=== PATIENT | male | born 1960 | race Caucasian/White ===

== ENCOUNTER → 2021-07-16 09:45 | Outpatient (CLI) | payer SELFPAY | PROVIDERS: PCP Internal Medicine; Visit Provider Nurse Practitioner | DX: Z20.822 Contact with and (suspected) exposure to COVID-19 (principal); U07.1 COVID-19 | CPT/HCPCS: C9803; U0003; U0005 ==

== ENCOUNTER 2021-07-17 07:39 | Outpatient (CLI) | payer SELFPAY ==
[2021-07-17 08:27] VITALS: BP 131/76; PULSE 81; RESP 20; TEMP 36.9; O2SAT 95
[2021-07-17 09:15] VITALS: BP 139/72; PULSE 81; RESP 18; TEMP 36.9; O2SAT 95
[2021-07-17 09:30] VITALS: BP 134/72; PULSE 79; RESP 18; TEMP 36.9; O2SAT 96
[2021-07-17 09:45] VITALS: BP 132/70; PULSE 88; RESP 18; TEMP 36.9; O2SAT 95
[2021-07-17 10:00] VITALS: BP 141/70; PULSE 79; RESP 18; TEMP 36.9; O2SAT 95
[2021-07-17 10:29] VITALS: BP 130/68; PULSE 85; RESP 18; TEMP 36.9; O2SAT 96
== END 2021-07-17 10:31 | disposition home or self-care (01) ==
LOC: INF 07:46
PROVIDERS: PCP Internal Medicine; Visit Provider Internal Medicine
DX: U07.1 COVID-19 (principal)
CPT/HCPCS: 96360

== ENCOUNTER → 2022-11-04 09:43 | Outpatient (CLI) | payer OTHER, SELFPAY ==
[2022-11-04 09:57] LABS: Microscopic, Urine URINE MICROSCOPIC (MICROSCOPIC)
[2022-11-04 10:47] LABS: Chloride 105 mmol/L (98-107); Sodium 141 mmol/L (136-145)
[2022-11-04 10:49] LABS: Blood Urea Nitrogen 13 mg/dl (9-20); Estimated Glomerular Filt Rate 86 ml/min (>60); GFR (African American) 104 ML/MIN (>60)
[2022-11-04 10:50] LABS: Alanine Aminotransferase 48 U/L (12-78); Albumin Level 4.4 g/dl (3.5-5.0); Albumin/Globulin Ratio 1.3 (1.1-1.8); Alkaline Phosphatase 85 U/L (38-126); Aspartate Amino Transferase 39 U/L (17-59); Bilirubin,Total 0.8 mg/dl (0.2-1.3); Calcium 9.4 mg/dl (8.4-10.2); Carbon Dioxide 29 mmol/L (22.0-30.0); Globulin 3.3 g/dL (1.3-3.2); Glucose 148 mg/dl (74-100); Total Protein,Serum 7.7 g/dl (6.3-8.2)
[2022-11-04 11:22] LABS: Appearance,Urine CLEAR (Clear); Bilirubin,Urine Negative (Negative); Blood, Urine Negative (Negative); Color,Urine YELLOW (Yellow); Glucose,Urine (UA) 3+ (Negative); Ketones,Urine Negative (Negative); Leukocyte Esterase,Urine Negative (Negative); Nitrate,Urine Negative (Negative); Protein,Urine Negative (Negative); Specific Gravity, Urine <= 1.005 (1.005-1.030); Urobilinogen,Urine 0.2 EU/dl (0.2)
[2022-11-04 11:34] LABS: Bacteria,Urine Trace /lpf
== END ==
PROVIDERS: Visit Provider Chiropractor
DX: E11.9 Type 2 diabetes mellitus without complications (principal); Z79.4 Long term (current) use of insulin
CPT/HCPCS: 36415; 80053; 81001

== ENCOUNTER 2024-02-04 10:53 | Emergency (ER) | payer OTHER, SELFPAY ==
--- NOTE | 2024-02-04 11:16 | ED_ITS ---
Discharge Plan Disposition Patient Disposition: Home, Self-Care Condition: Good Prescriptions Prescriptions: New levofloxacin 500 mg tablet 500 mg PO DAILY Qty: 10 0RF No Action cyclobenzaprine 10 MG tablet 10 mg PO Q8HP PRN (Reason: Muscle Spasm) ranitidine HCl [Zantac 75] 75 MG tablet 75 mg PO DAILY Referrals Follow up/Referrals: Provider,Referral, MD [Primary Care Provider] - See instructions Activity Restrictions/Add. Instructions Additional Instructions/Restrictions: [facility] not [facility] Clinical Impressions Clinical Impression: Acute prostatitis Instructions Patient Instructions: DI for Acute Prostatitis Discharge ED Provider: Catherine Pack [facility] General Stated complaint: Pain and pressure while urinating Time Seen by Provider: 02/04/24 12:16 History of Present Illness Provider Complaint: Dysuria and frequency, pressure since yesterday morning Onset (ago): day(s) Location: pelvis Relieving factors: none Exacerbating factors: none Associated symptoms: denies other symptoms Treatments prior to arrival: none Related Data Home Medications Medication Instructions Recorded Confirmed aspirin 81 mg tablet 81 mg PO ONCE 01/25/18 atorvastatin 20 mg tablet 20 mg PO ONCE 01/25/18 cyclobenzaprine 10 mg tablet 10 mg PO Q8HP PRN Muscle Spasm 01/25/18 01/25/18 insulin glulisine U-100 100 10 unit SQ QAM 01/25/18 unit/mL subcutaneous solution (Apidra U-100 Insulin) lisinopril 20 mg tablet 20 mg PO ONCE 01/25/18 metformin 1,000 mg tablet 1,000 mg PO BID 01/25/18 ranitidine HCl 150 mg capsule 150 mg PO QHS 01/25/18 ranitidine HCl 75 mg tablet 75 mg PO DAILY stomach 01/25/18 01/25/18 (Zantac) Previous Rx's Medication Instructions Recorded levofloxacin 500 mg tablet 500 mg PO DAILY #10 tabs 02/04/24 Allergies Allergy/AdvReac Type Severity Reaction Status Date / Time No Known Allergies Allergy Unverified 01/25/18 12:01 [facility] Disclaimer: The information contained in this section may have been updated after the patient was seen, as this information can be updated by other users. Social History Smoking Status: Current every day smoker tobacco type: cigarettes packs per day: 2 alcohol intake: never current occupational status: retired Travel in the last 8 weeks: None caffeine: Yes ROS Obtained: Yes All systems reviewed & no additional complaints except as documented Genitourinary Male Genitourinary: Reports urinary frequency and Reports urinary hesitancy Physical Exam General General appearance: alert and in no apparent distress Chest Chest inspection: Present normal inspection and symmetric chest wall rise; Absent tenderness Respiratory Respiratory exam: Present normal lung sounds bilaterally; Absent respiratory distress Cardiovascular Cardiovascular exam: Present regular rate and normal rhythm; Absent JVD Abdominal Exam Abdominal exam: Present soft and normal bowel sounds; Absent distention, tenderness or guarding Extremities Exam Extremities exam: Present normal inspection, full ROM and normal capillary refill; Absent calf tenderness Neurological Exam Neurological exam: Present alert and oriented X3 Psychiatric Psychiatric exam: Present normal affect and normal mood Skin Skin exam: Present warm, dry, intact and normal color Lymphatic Lymphatic Findings: no adenopathy Medical Decision Making Aung Inquiry Pt receiving controlled substance: No Lab Data Lab results reviewed: Yes I reviewed the patient's lab results.
[2024-02-04 11:45] VITALS: BP 125/74; PULSE 74; RESP 20; TEMP 36.8; O2SAT 96; BMI 36.6
[2024-02-04 12:19] LABS: Apearance,Urine Clear (Clear); Color,Urine Yellow (Yellow); PH,Urine 5.5 (5.0-8.5)
[2024-02-04 12:20] LABS: Bilirubin,Urine Negative (Negative); Blood, Urine Negative (Negative); Glucose,Urine (UA) >=1000 (Negative); Ketones,Urine Negative (Negative); Protein,Urine Negative (Negative); UTC Leukocyte Esterase,Urine Negative (Negative); UTC Nitrate,Urine Negative (Negative); Urobilinogen,Urine 0.2 EU/dl (0.2)
[2024-02-04 12:24] VITALS: BP 125/74; PULSE 74; RESP 20; TEMP 36.8; O2SAT 96
== END 2024-02-04 12:25 | disposition home or self-care (01) ==
PROVIDERS: Emergency Provider Physician Assistant
DX: N41.0 Acute prostatitis (principal); B95.2 Enterococcus as the cause of diseases classified elsewhere; R30.0 Dysuria; R35.0 Frequency of micturition; F17.210 Nicotine dependence, cigarettes, uncomplicated
CPT/HCPCS: 81003; 87086; 99204; 99212; G0463